=== PATIENT | female | born 1965 | race Caucasian/White ===

== ENCOUNTER 2017-08-11 16:10 | Emergency (ER) | payer OTHER ==
[~2017-08-11] VITALS: Ht 157.5 cm; Wt 65.0 kg
[~2017-08-11 16:10] MED LIST: MOME13HF2 IH; MONT10TA21 PO
[2017-08-11 16:25] VITALS: Ht 157.5 cm; Wt 65.0 kg
[2017-08-11] MEDS ORDERED: FLUT9.9S NASAL (17:22)
[2017-08-11] MEDS ORDERED: PHEN177S43 MT (17:22)
[2017-08-11] MEDS ORDERED: BENZ200C43 PO (17:22)
[2017-08-11] MEDS ORDERED: MONT10TA21 PO (17:42)
[2017-08-11] MEDS ORDERED: MOME13HF2 INHALATION (17:42)
--- NOTE | 2017-08-11 17:57 | ERD ---
ER Documentation Chief Complaint Chief Complaint SORE THROAT, HEADACHE, CONGESTION X 3 DAYS HPI Patient is a 52-year-old female presenting to the emergency department with complaints of intermittent, worsening sore throat, headache, nasal congestion for 3 days. No other symptoms reported currently. ROS All systems reviewed and are negative except as per history of present illness. Medications Home Meds Active Scripts Mometasone-Formoterol (Dulera) 100-5 Mcg - 13 Gm Hfa.aer.ad, 2 PUFFS INHALATION BID, #1 INHALER Prov:JULIANE GARZA PA-C 08/11/17 Montelukast Sodium* (Singulair*) 10 Mg Tablet, 10 MG PO QHS, #30 TAB Prov:JULIANE GARZA PA-C 08/11/17 Phenol* (Chloraseptic* [place]) 177 Ml [place].pump, 2 SPRAY MT Q2H Y for SORE THROAT, #1 BOTTLE Prov:JULIANE GARZA PA-C 08/11/17 Benzonatate* (Benzonatate*) 200 Mg Capsule, 200 MG PO TID Y for COUGH, #20 CAP Prov:JULIANE GARZA PA-C 08/11/17 Fluticasone Propionate (Flonase Allergy Relief) 9.9 Ml [place].susp, 2 SPRAY NASAL DAILY, #1 BOTTLE TO EACH NOSTRIL Prov:JULIANE GARZA PA-C 08/11/17 Reported Medications Montelukast Sodium* (Singulair*) 10 Mg Tablet, 10 MG PO HS, TAB 08/23/14 Mometasone-Formoterol (Dulera) 100-5 Mcg - 13 Gm Hfa.aer.ad, 1 PUFFS IH QHS, EA 08/23/14 Allergies Allergies: Coded Allergies: No Known Allergy (Unverified , 08/23/14) PMhx/Soc Medical and Surgical Hx: pt denies Medical Hx, pt denies Surgical Hx Hx Alcohol Use: No Hx Substance Use: No Hx Tobacco Use: No Smoking Status: Never smoker Physical Exam Vitals Vital Signs Date Time Temp Pulse Resp B/P Pulse Ox O2 Delivery O2 Flow Rate FiO2 08/11/17 16:25 98.2 90 18 117/77 97 Physical Exam Const: Nontoxic, well-appearing female in no acute distress. Head: Atraumatic Eyes: Normal Conjunctiva ENT: Normal External Ears, Nose and Mouth. Nares are congested. Neck: Full range of motion..~ No meningismus. Resp: Clear to auscultation bilaterally Cardio: Regular rate and rhythm, no murmurs Skin: No petechiae or rashes Ext: No cyanosis, or edema Neur: Awake and alert Psych: Normal Mood and Affect Procedures/MDM 52-year-old female presents to the emergency department for flulike symptoms. Physical examination is consistent with a viral syndrome. Vital signs are within normal limits and there is no evidence to suggest life-threatening illness. I will give the patient prescriptions for her symptoms. Patient also requested refills of her asthma medication, which I gave her prescriptions for. Pt/family in agreement with discharge plan/diagnosis. Pt/family advised to return immediately with any new or worsening symptoms. Follow-up with primary care physician within the next 1-2 days. Disclaimer: Inadvertent spelling and grammatical errors are likely due to EHR/ dictation software use and do not reflect on the overall quality of patient care. Also, please note that the electronic time recorded on this note does not necessarily reflect the actual time of the patient encounter. Departure Diagnosis: Primary Impression: Viral syndrome Condition: Fair Patient Instructions: Preventing Common Respiratory Infections Referrals: CORY TAYLOR MD Additional Instructions: No mas mejor en 2-3 saunders, regresar. Mas peor en 24 horas, regresear rapidamente. Ir a doctor primario en 1-2 saunders. Usar instrucciones cuando min medicamento. JULIANE GARZA PA-C Aug 11, 2017 17:57
== END 2017-08-11 17:40 | disposition home or self-care (01) ==
LOC: FTE 16:10
DX: B34.9 Viral infection, unspecified (principal)
CPT/HCPCS: 99283

== ENCOUNTER 2017-09-08 12:13 | Emergency (ER) | payer OTHER ==
[~2017-09-08] VITALS: Wt 65.9 kg
[~2017-09-08 12:13] MED LIST changes: +BENZ200C43 PO; +FLUT9.9S NASAL; +MOME13HF2 INHALATION; +PHEN177S43 MT
[2017-09-08 12:14] VITALS: Wt 65.9 kg
--- NOTE | 2017-09-08 12:41 | ERD ---
ER Documentation Chief Complaint Chief Complaint n/v/d, [place]well, chills, bodyaches, weakness HPI 52 y/o female patient with with history of well-controlled type 2 diabetes mellitus and asthma, presents to the emergency department c/o sudden onset of left lower quadrant, constant, that started 3 days ago. The pain is colicky, rated 8/10, without radiation. The symptoms are associated with nausea, loose stools, generalized arthralgia and feeling weak. Aggravating factors: Unknown. Alleviating factors: Unknown. Denies fever, cough, chest pain, dizziness. No history of previous episodes. Treatment attempted: None. Previous evaluation: None. History was given by the patient ROS SYSTEMIC symptoms: no fever but chills, no night sweats, no weight loss EYE symptoms: No blurred vision, no eye discharge OTOLARYNGEAL symptoms: No hearing loss. No ear pain, no sore throat CARDIOVASCULAR symptoms: No chest pain or discomfort, no palpitations. PULMONARY symptoms: No dyspnea, no cough, no wheezing. GASTROINTESTINAL symptoms: Per HPI MUSCULOSKELETAL symptoms: No arthralgias, no muscle aches. NEUROLOGY symptoms: No confusion, no syncope, no numbness or tingling. SKIN: No rashes Medications Home Meds Active Scripts Ranitidine Hcl* (Zantac*) 150 Mg Tablet, 150 MG PO BID Y for EPIGASTRIC PAIN, # 30 TAB Prov:RODNEY BURNETT MD 09/08/17 Hydrocodone/Acetaminophen ([place] 5-325 Tablet) 1 Each Tablet, 1 TAB PO Q6H Y for PAIN, #20 TAB Prov:RODNEY BURNETT MD 09/08/17 Mometasone-Formoterol (Dulera) 100-5 Mcg - 13 Gm Hfa.aer.ad, 2 PUFFS INHALATION BID, #1 INHALER Prov:JULIANE GARZA PA-C 08/11/17 Montelukast Sodium* (Singulair*) 10 Mg Tablet, 10 MG PO QHS, #30 TAB Prov:JULIANE GARZA PA-C 08/11/17 Phenol* (Chloraseptic* [place]) [address] [place].pump, 2 SPRAY MT Q2H Y for SORE THROAT, #1 BOTTLE Prov:JULIANE GARZA PA-C 08/11/17 Benzonatate* (Benzonatate*) 200 Mg Capsule, 200 MG PO TID Y for COUGH, #20 CAP Prov:JULIANE GARZA PA-C 08/11/17 Fluticasone Propionate (Flonase Allergy Relief) 9.[address] [place].susp, 2 SPRAY NASAL DAILY, #1 BOTTLE TO EACH NOSTRIL Prov:JULIANE GARZA PA-C 08/11/17 Reported Medications Montelukast Sodium* (Singulair*) 10 Mg Tablet, 10 MG PO HS, TAB 08/23/14 Mometasone-Formoterol (Dulera) 100-5 Mcg - 13 Gm Hfa.aer.ad, 1 PUFFS IH QHS, EA 08/23/14 Allergies Allergies: Coded Allergies: No Known Allergy (Unverified , 08/23/14) PMhx/Soc Hx Alcohol Use: No Hx Substance Use: No Hx Tobacco Use: No Physical Exam Vitals Vital Signs Date Time Temp Pulse Resp B/P Pulse Ox O2 Delivery O2 Flow Rate FiO2 09/08/17 12:14 99.4 78 20 114/61 98 Physical Exam Patient is in moderate distress due to pain, vital signs stable. Alert and fully oriented. EYES: PERRLA, EOMI, Sclera and conjunctiva appear normal. EARS: Canals clear, tympanic membranes WNL THROAT: Normal oropharynx. NECK: Supple, No lymphadenopathy. Full ROM without pain or tenderness. HEART: RRR, no rubs, murmurs, clicks or gallops. LUNGS: Clear to auscultation. ABDOMEN: Guarded, tender to deep palpation in the left lower quadrant, questionable rebound. No hepatosplenomegaly or megaly EXTREMITIES: No edema bilaterally. BACK: Full ROM, no deformity, normal back exam NEURO: Cranial nerves grossly intact, no motor or sensory deficit Result Diagram: 09/08/17 1316 09/08/17 1316 Results 24 hrs Laboratory Tests Test 09/08/17 13:16 White Blood Count 5.310^3/ul Red Blood Count 4.1710^6/ul Hemoglobin 12.7g/dl Hematocrit 36.6% Mean Corpuscular Volume 87.8fl Mean Corpuscular Hemoglobin 30.5pg Mean Corpuscular Hemoglobin Concent 34.7g/dl Red Cell Distribution Width 11.9% Platelet Count 33548^3/UL Mean Platelet Volume 11.7fl Neutrophils % 81.6% Lymphocytes % 12.7% Monocytes % 4.2% Eosinophils % 1.1% Basophils % 0.2% Nucleated Red Blood Cells % 0.0/100WBC Neutrophils # 4.310^3/ul Lymphocytes # 0.710^3/ul Monocytes # 0.210^3/ul Eosinophils # 0.110^3/ul Basophils # 0.010^3/ul Nucleated Red Blood Cells # 0.010^3/ul Urine Color YELLOW Urine Clarity CLEAR Urine pH 6.0 Urine Specific [place] 1.023 Urine Ketones NEGATIVEmg/dL Urine Nitrite NEGATIVEmg/dL Urine Bilirubin NEGATIVEmg/dL Urine Urobilinogen 2+mg/dL Urine Leukocyte Esterase NEGATIVELeu/ul Urine Hemoglobin NEGATIVEmg/dL Urine Glucose NEGATIVEmg/dL Urine Total Protein NEGATIVEmg/dl Sodium Level 140mmol/L Potassium Level 3.4mmol/L Chloride Level 102mmol/L Carbon Dioxide Level 27mmol/L Anion Gap 14 Blood Urea Nitrogen 9mg/dl Creatinine 0.56mg/dl Glucose Level 146mg/dl Calcium Level 9.0mg/dl Total Bilirubin 0.7mg/dl Direct Bilirubin 0.00mg/dl Indirect Bilirubin 0.7mg/dl Aspartate Amino Transf (AST/SGOT) 31IU/L Alanine Aminotransferase (ALT/SGPT) 40IU/L Alkaline Phosphatase 82IU/L Total Protein 7.3g/dl Albumin 4.2g/dl Globulin 3.10g/dl Albumin/Globulin Ratio 1.35 Lipase 46U/L Current Medications Medications (Trade) Dose Ordered Sig/Salima Route PRN Reason Start Time Stop Time Status Last Admin Dose Admin Sodium Chloride (NS) 1,000 ml @ 1,000 mls/hr Q1H STAT IV 09/08/17 12:42 09/08/17 13:41 DC 09/08/17 13:08 Ondansetron HCl (Zofran Inj) 4 mg ONCE STAT IV 09/08/17 12:42 09/08/17 12:43 DC 09/08/17 13:11 Ketorolac Tromethamine (Toradol) 30 mg ONCE STAT IV 09/08/17 12:42 09/08/17 12:43 DC 09/08/17 13:11 [place] [id number] Radiology Main Line: [phone] DIAGNOSTIC IMAGING REPORT Patient: SAMIR PIZARRO : 1965 Age: 52 Sex: F MR #: [id number] [facility] #: [id number] DOS: 09/08/17 1242 Ordering MD: RODNEY BURNETT MD Location: [facility] Room/Bed: PROCEDURE: CT ABDOMEN AND PELVIS WITHOUT CONTRAST. CLINICAL INDICATION: Abdominal pain TECHNIQUE: CT scan of the abdomen and pelvis without contrast was performed on a multidetector high-resolution CT scanner. The patient was scanned without intravenous contrast. Coronal and sagittal reformatted images were obtained from the axial source images. Images were reviewed on a high-resolution PACS workstation. The total exam CTDI equals 9.7 mGy and the total exam DLP equals 527 mGy-cm. One or more of the following dose reduction techniques were used: Automated exposure control. Adjustment of the mA and/or kV according to patient size. Use of iterative reconstruction technique. DICOM images are available COMPARISON: None FINDINGS: CT abdomen: The lung bases are clear. The heart size is within limits. There is no significant pericardial effusion. Hepatic morphology is within limits. No gross contour deforming masses. Gallbladder appears to be within normal limits. No evidence of intrahepatic or extrahepatic biliary dilatation. The spleen and pancreas are within normal limits. Both adrenal glands are within normal limits. Both kidneys are in normal anatomic position. No evidence of obstruction or hydronephrosis. No gross renal/ureteric calculi. The visualized GI tract demonstrates a focal dilated loop of small bowel within the left side of the abdomen, without definitive transition point. This is seen on images number 71 through 104. Findings are suggestive of focal ileus. No gross evidence of obstruction. The appendix is within normal limits. The unenhanced aorta is unremarkable. No significant retroperitoneal lymphadenopathy. CT pelvis: The bladder is distended. The uterus is unremarkable. The rectosigmoid colon is within normal limits. No significant free fluid. No significant pelvic lymphadenopathy. The visualized osseous structures demonstrate degenerative changes at the level of L5-S1. IMPRESSION: 1. No evidence of acute intra-abdominal/pelvic inflammatory process. No evidence of bowel obstruction. The appendix is within normal limits. 2. FOCAL MILDLY DILATED LOOP OF SMALL BOWEL WITHIN THE LEFT SIDE OF THE ABDOMEN , SUGGESTIVE OF FOCAL ILEUS. 3. No evidence of free fluid or free air. No gross focal fluid collections. RPTAT: AARR Suzanne Raphael Physician Date Time Electronically viewed and signed by Suzanne Raphael Physician on 09/08/2017 15:18 JL/ CC: RODNEY BURNETT MD Procedures/MDM 52y/o female patient with history of diabetes and asthma, presents to the ED c/ o left lower quadrant abdominal pain for 2 days. Vital signs stable, Physical exam revealed guarded abdomen, tender to deep palpation in the left lower quadrant, questionable rebound. Differential diagnosis include but not limited to: UTI, colitis, gastroenteritis, kidney stones, irritable bowel syndrome, inflammatory bowel syndrome, malabsorption syndrome, cholelithiasis, food intolerance, medication side effect, pancreatitis, diverticulitis, bowel obstruction. Pertinent Data: Labs: CBC: normal, CMP: normal kidney and liver function, normal electrolytes. Lipase: normal Radiology: CT abdomen: IMPRESSION: 1. No evidence of acute intra-abdominal/pelvic inflammatory process. No evidence of bowel obstruction. The appendix is within normal limits. 2. FOCAL MILDLY DILATED LOOP OF SMALL BOWEL WITHIN THE LEFT SIDE OF THE ABDOMEN , SUGGESTIVE OF FOCAL ILEUS. 3. No evidence of free fluid or free air. No gross focal fluid collections. Physical examination and clinical presentation consistent most likely with noninfectious colitis. During the ED course the patient received treatment with IV fluids, Toradol, famotidine, Zofran presenting overall improvement of the symptoms. Results and clinical impression discussed with the patient who agrees with management. The patient is stable to be treated outpatient and will be discharged home with a Rx for ranitidine and [place] as needed for pain Side effects of prescribed medications (headache, rash, nausea, vomiting, diarrhea) were reviewed. Side effects of prescribed opiates (drowsiness, habituation) were reviewed. Side effects of prescribed NSAID medication (GI distress, edema, bleeding, HTN) were reviewed. The patient was instructed to follow up with the primary care provider in the next 48h. If symptoms persist, worsen or new symptoms develop, then patient should return to the ED immediately. Instructions explained and given to patient in [place] with acknowledgment and demonstrated understanding. Disclaimer: Inadvertent spelling and grammatical errors are likely due to EHR/ dictation software use and do not reflect on the overall quality of patient care. Also, please note that the electronic time recorded on this note does not necessarily reflect the actual time of the patient encounter. Departure Diagnosis: Primary Impression: Abdominal pain Additional Impressions: Asthma Medication refused Condition: Stable Additional Instructions: Muchas lindsey por [facility] para rodrigues servicio. Esperamos que en rodrigues visita a la claudia de emergencia rodrigues problema medico haya sido solucionado y que se sienta mucho mejor. Para estar seguros que rodrigues mejoria sigue en proceso, le pedimos el favor de hacer jane marsha de seguimiento medico con rodrigues doctor primario en los proximos 2-4 saunders. Lleve con usted estos documentos y las medicinas recetadas. Si preet sintomas empeoran y no puede david a rodrigues doctor, por favor regrese a claudia de emergencia. En jose angel que usted no tenga un mdico de atencin primaria: Llame al mdico o clnica comunitaria de referencia que aparece abajo edson las horas de consultorio para hacer jane marsha para que le vean. CLINICAS: [facility] [phone] [address] [facility] [phone] [address] [facility] [phone] [facility] [phone] [address] [facility] [phone] [id number] [facility]. [phone] MD Sep 08, 2017 12:41
[2017-09-08] MEDS ORDERED: SOD CHLORIDE 0.9% 1,000 ML IV STA (12:42)
[2017-09-08] MEDS ORDERED: KETOROLAC 30 MG INJ IV STA (12:42)
[2017-09-08] MEDS ORDERED: ONDANSETRON 4 MG INJ IV STA (12:42)
[2017-09-08 13:38] LABS: BASOPHILS % 0.2 % (0.0-2.0); EOSINOPHILS # 0.1 10^3/ul (0.0-0.5); EOSINOPHILS % 1.1 % (0.0-7.0); HEMATOCRIT 36.6 % (37.0-47.0); HEMOGLOBIN 12.7 g/dl (12.0-16.0); LYMPHOCYTES # 0.7 10^3/ul (0.8-2.9); LYMPHOCYTES % 12.7 % (15.0-51.0); MEAN CORPUSCULAR HEMOGLOBIN 30.5 pg (29.0-33.0); MEAN CORPUSCULAR HGB CONC 34.7 g/dl (32.0-37.0); MEAN CORPUSCULAR VOLUME 87.8 fl (82.0-101.0); MEAN PLATELET VOLUME 11.7 fl (7.4-10.4); MONOCYTE # 0.2 10^3/ul (0.3-0.9); MONOCYTES % 4.2 % (0.0-11.0); NEUTROPHIL # 4.3 10^3/ul (1.6-7.5); NEUTROPHILS % 81.6 % (39.0-77.0); PLATELET COUNT 157 10^3/UL (140-415); RED BLOOD COUNT 4.17 10^6/ul (4.20-5.40); RED CELL DISTRIBUTION WIDTH 11.9 % (11.5-14.5); WHITE BLOOD COUNT 5.3 10^3/ul (4.8-10.8)
[2017-09-08 13:42] LABS: ADD UMIC NO; UR ASCORBIC ACID NEGATIVE (NEGATIVE); UR BILIRUBIN (Dip) NEGATIVE (NEGATIVE); UR BLOOD (Dip) NEGATIVE (NEGATIVE); UR CLARITY CLEAR (CLEAR); UR COLOR YELLOW (YELLOW); UR GLUCOSE (Dip) NEGATIVE (NEGATIVE); UR KETONES (Dip) NEGATIVE (NEGATIVE); UR LEUKOCYTE ESTERASE (Dip) NEGATIVE Leu/ul (NEGATIVE); UR NITRITE (Dip) NEGATIVE (NEGATIVE); UR SPECIFIC GRAVITY (Dip) 1.023 (1.003-1.030); UR TOTAL PROTEIN (Dip) NEGATIVE (NEGATIVE); UR UROBILINOGEN (Dip) 2+ mg/dL (NEGATIVE)
[2017-09-08 14:02] LABS: ALBUMIN 4.2 g/dl (3.3-4.9); ALBUMIN/GLOBULIN RATIO 1.35; BILIRUBIN,INDIRECT 0.7 mg/dl (0-1.1); BILIRUBIN,TOTAL 0.7 mg/dl (0.2-1.3); CREATININE 0.56 mg/dl (0.44-1.00); POTASSIUM 3.4 mmol/L (3.5-5.1); TOTAL PROTEIN 7.3 g/dl (6.1-8.1)
[2017-09-08] MEDS ORDERED: RANI150T9 PO (15:00)
[2017-09-08] MEDS ORDERED: HYDR-906 PO (15:00)
--- NOTE | 2017-09-08 15:19 | RADRPT ---
PROCEDURE: CT ABDOMEN AND PELVIS WITHOUT CONTRAST. CLINICAL INDICATION: Abdominal pain TECHNIQUE: CT scan of the abdomen and pelvis without contrast was performed on a multidetector hig h-resolution CT scanner. The patient was scanned without intravenous contrast. Coronal and sagittal reformatted images were obtained from the axial source images. Images were reviewed on a high-resol [employer] PACS workstation. The total exam CTDI equals 9.7 mGy and the total exam DLP equals 527 mGy-cm. One or more of the following dose reduction techniques were used: Automated exposure control. Adjustment of the mA and/or kV according to patient size. Use of iterative reconstruction technique. DICOM images are available COMPARISON: None FINDINGS: CT abdomen: The lung bases are clear. The heart size is within limits. There is no significant pericardial effus ion. Hepatic morphology is within limits. No gross contour deforming masses. Gallbladder appears to be wi thin normal limits. No evidence of intrahepatic or extrahepatic biliary dilatation. The spleen and pancreas are within normal limits. Both adrenal glands are within normal limits. Both kidneys are in normal anatomic position. No evidence of obstruction or hydronephrosis. No gross renal/ureteric calculi. The visualized GI tract demonstrates a focal dilated loop of small bowel within the left side of the abdomen, without definitive transition point. This is seen on images number 71 through 104. Finding s are suggestive of focal ileus. No gross evidence of obstruction. The appendix is within normal rios its. The unenhanced aorta is unremarkable. No significant retroperitoneal lymphadenopathy. CT pelvis: The bladder is distended. The uterus is unremarkable. The rectosigmoid colon is within normal limits . No significant free fluid. No significant pelvic lymphadenopathy. The visualized osseous structures demonstrate degenerative changes at the level of L5-S1. IMPRESSION: 1. No evidence of acute intra-abdominal/pelvic inflammatory process. No evidence of bowel obstructio n. The appendix is within normal limits. 2. FOCAL MILDLY DILATED LOOP OF SMALL BOWEL WITHIN THE LEFT SIDE OF THE ABDOMEN, SUGGESTIVE OF FOCAL ILEUS. 3. No evidence of free fluid or free air. No gross focal fluid collections. RPTAT: AARR Suzanne Raphael Physician Date Time Electronically viewed and signed by Suzanne Raphael, Physician on 09/08/2017 15:18 JL/
[2017-09-08] MEDS ORDERED: MOME13HF INHALATION (15:51)
== END 2017-09-08 15:41 | disposition home or self-care (01) ==
LOC: FTE 12:13
DX: R10.32 Left lower quadrant pain (principal); J45.909 Unspecified asthma, uncomplicated
CPT/HCPCS: 36415; 74176; 80053; 81003; 83690; 85025; 96374; 96375; J1885; J2405; J7030; Z7502

== ENCOUNTER 2018-03-11 19:09 | Emergency (ER) | END 2018-03-11 23:52 | disposition home or self-care (01) ==

== ENCOUNTER 2018-04-25 17:28 | Emergency (ER) | END 2018-04-25 19:39 | disposition home or self-care (01) ==

== ENCOUNTER 2018-06-16 14:14 | Emergency (ER) | END 2018-06-16 18:15 | disposition home or self-care (01) ==

== ENCOUNTER 2018-10-16 12:20 | Emergency (ER) | payer OTHER ==
[~2018-10-16] VITALS: Wt 64.1 kg
[~2018-10-16 12:20] MED LIST changes: +ACET500C5 PO; +ALBU8.5H8 INH; -BENZ200C43 PO; +BENZ200C68 PO; +CEPH-443 PO; +GUAI-637 PO; +HYDR-4011 PO; +MED4DP PO; +MOME13HF INHALATION; +NPH10OT RIGHT EAR; +ONDA8TAB14 PO; +RANI150T35 PO
[2018-10-16 12:28] VITALS: BP 129/70; PULSE 99; RESP 18
[2018-10-16] MEDS ORDERED: predniSONE 20 MG TAB PO STA (13:56)
[2018-10-16] MEDS ORDERED: IPRATROPIUM (NEB) 0.5 MG/2.5 ML AMP NEB STA (13:56)
[2018-10-16] MEDS ORDERED: ALBUTEROL 0.083% (NEB) 2.5 MG/3 ML AMP NEB STA (13:56)
--- NOTE | 2018-10-16 13:57 | ERD ---
ER Documentation Chief Complaint Chief Complaint ASTHMA WITH BILATERAL EAR PAIN HPI 53-year-old female, presents the emergency department, complaining of 5 days with worsening of cough, congestion and wheezing, associated with bilateral ear pain. The patient has been using Dulera twice a day without improvement of the symptoms. She also refers subjective fever but no chills, no shortness of breath or chest pain. ROS All systems reviewed and are negative except as per history of present illness. Medications Home Meds Active Scripts Prednisone* (Prednisone*) 20 Mg Tab, 40 MG PO DAILY for 4 Days, TAB Prov:RODNEY BURNETT MD 10/16/18 Azithromycin* (Zithromax*) 250 Mg Tablet, 250 MG PO .ZPACK DIRECTED, #6 TAB TAKE 500 MG (2 TABS) THE FIRST DAY THEN 250 MG (1 TAB) DAYS 2-5 Prov:RODNEY BURNETT MD 10/16/18 Albuterol Sulfate* (Proair HFA*) 8.5 Gm Hfa.aer.ad, 2 PUFF INH Q4H PRN for WHEEZING AND SOB, #1 INHALER Prov:RODNEY BURNETT MD 10/16/18 Mometasone-Formoterol (Dulera) 200-5 Mcg/Inh - 13 Gm Hfa.aer.ad, 2 PUFFS INHALATION BID, #1 INHALER Prov:RODNEY BURNETT MD 10/16/18 Ondansetron (Ondansetron Odt) 8 Mg Tab.rapdis, 8 MG PO Q6H PRN for NAUSEA AND/OR VOMITING, #8 TAB Prov:TIM MTZ MD 06/16/18 Acetaminophen* (Tylophen*) 500 Mg Capsule, 1 CAP PO Q6H PRN for PAIN AND OR ELEVATED TEMP, #20 CAP Prov:TIM MTZ MD 06/16/18 Neomycin/Polymyxin/Hydrocort* (Cortisporin* Otic) 10 Ml Susp, 4 DROP RIGHT EAR QID for 7 Days, EA Prov:TIM MTZ MD 06/16/18 Cephalexin* (Keflex*) 500 Mg Capsule, 500 MG PO BID for 7 Days, CAP Prov:JULIANE GARZA PA-C 04/25/18 Guaifenesin* (Robitussin*) 100 Mg/5 Ml Syrup, 100 MG PO QID, #120 ML Prov:ARCELIA ESCALANTE 03/11/18 Methylprednisolone* (Medrol* DOSE PACK) 4 Mg/Dose-Pack Tab.ds.pk, 4 MG PO . DIRECTED for 6 Days, PACKET Prov:ARCELIA ESCALANTE 03/11/18 Albuterol Sulfate* (Proair HFA*) 8.5 Gm Hfa.aer.ad, 2 PUFF INH Q4, #1 INHALER Prov:ARCELIA ESCALANTE 03/11/18 Mometasone-Formoterol (Dulera) 200-5 Mcg/Inh - 13 Gm Hfa.aer.ad, 2 PUFFS INHALATION BID, #1 INHALER Prov:RODNEY BURNETT MD 09/08/17 Ranitidine Hcl* (Zantac*) 150 Mg Tablet, 150 MG PO BID PRN for EPIGASTRIC PAIN, #30 TAB Prov:RODNEY BURNETT MD 09/08/17 Hydrocodone/Acetaminophen ([place] 5-325 Tablet) 1 Each Tablet, 1 TAB PO Q6H PRN for PAIN, #20 TAB Prov:RODNEY BURNETT MD 09/08/17 Mometasone-Formoterol (Dulera) 100-5 Mcg - 13 Gm Hfa.aer.ad, 2 PUFFS INHALATION BID, #1 INHALER Prov:JULIANE GARZA PA-C 08/11/17 Montelukast Sodium* (Singulair*) 10 Mg Tablet, 10 MG PO QHS, #30 TAB Prov:JULIANE GARZA PA-C 08/11/17 Phenol* (Chloraseptic* [place]) 177 Ml [place].pump, 2 SPRAY MT Q2H PRN for SORE THROAT, #1 BOTTLE Prov:JULIANE GARZA PA-C 08/11/17 Benzonatate* (Benzonatate*) 200 Mg Capsule, 200 MG PO TID PRN for COUGH, #20 CAP Prov:JULIANE GARZA PA-C 08/11/17 Fluticasone Propionate (Flonase Allergy Relief) 9.9 Ml [place].susp, 2 SPRAY NASAL DAILY, #1 BOTTLE TO EACH NOSTRIL Prov:JULIANE GARZA PA-C 08/11/17 Reported Medications Montelukast Sodium* (Singulair*) 10 Mg Tablet, 10 MG PO HS, TAB 08/23/14 Mometasone-Formoterol (Dulera) 100-5 Mcg - 13 Gm Hfa.aer.ad, 1 PUFFS IH QHS, EA 08/23/14 Allergies Allergies: Coded Allergies: acetaminophen (Verified Allergy, Unknown, vomiting, 06/16/18) hydrocodone (Verified Allergy, Unknown, vomiting, 06/16/18) PMhx/Soc History of Surgery: No Hx Miscellaneous Medical Probl: Yes (asthma diabetes) Hx Alcohol Use: No Hx Substance Use: No Hx Tobacco Use: No FmHx Family History: diabetes; No coronary disease Physical Exam Vitals Vital Signs Date Temp Pulse Resp B/P (MAP) Pulse Ox O2 O2 Flow FiO2 Time Delivery Rate 10/16/18 98.1 99 18 129/70 99 12:28 (89) Physical Exam Const: No acute distress Head: Atraumatic Eyes: Normal Conjunctiva ENT: Normal External Ears, Nose and Mouth. Neck: Full range of motion. No meningismus. Resp: Bilateral decreased respiratory sounds with expiratory wheezing. Cardio: Regular rate and rhythm, no murmurs Abd: Soft, non tender, non distended. Normal bowel sounds Skin: No petechiae or rashes Back: No midline or flank tenderness Ext: No cyanosis, or edema Neur: Awake and alert Psych: Normal Mood and Affect Results 24 hrs Current Medications Medications Dose Sig/Salima Start Time Status Last (Trade) Ordered Route PRN Stop Time Admin Dose Reason Admin Albuterol 5 mg ONCE STAT 10/16/18 DC (Proventil NEB 13:56 0.083% (Neb)) 10/16/18 13:59 Ipratropium 0.5 mg ONCE STAT 10/16/18 DC [place] NEB 13:56 (Atrovent 10/16/18 0.02% 13:59 (Neb)) Prednisone 60 mg ONCE STAT 10/16/18 DC 10/16/18 (Prednisone) PO 13:56 14:03 10/16/18 13:59 Procedures/MDM Differential diagnosis include but not limited to: Respiratory infection bacterial/viral/fungal. Asthma/COPD, pneumonitis, allergies, GERD. Less likely foreign body aspiration, cardiac related, aspiration pneumonia, malignancy. Physical examination and clinical presentation consistent most likely with acute asthma exacerbation with early superimposed bacterial infection. During the ED course the patient remained stable, received a nebulized treatment and steroids in the ED presenting overall improvement of the symptoms, no new complaints. Clinical impression discussed with the patient who agrees with management. The patient is stable to be treated outpatient and will be discharged home. Some side effects of prescribed medications (headache, rash, nausea, vomiting, diarrhea, drowsiness, habituation, bleeding, hypertension, interactions with other medications) were reviewed. The patient was instructed to follow up with the primary care provider in the next 48h. If symptoms persist, worsen or new symptoms develop, then patient should return to the ED immediately. Disclaimer: Inadvertent spelling and grammatical errors are likely due to EHR/dictation software use and do not reflect on the overall quality of patient care. Also, please note that the electronic time recorded on this note does not necessarily reflect the actual time of the patient encounter. Departure Diagnosis: Primary Impression: Asthma Condition: Stable Patient Instructions: Asthma Additional Instructions: Muchas lindsey por [facility] para rodrigues servicio. Esperamos que en rodrigues visita a la claudia de emergencia rodrigues problema medico haya sido solucionado y que se sienta mucho mejor. Para estar seguros que rodrigues mejoria sigue en proceso, le pedimos el favor de hacer jane marsha de seguimiento medico con rodrigues doctor primario en los proximos 2-4 saunders. Lleve con usted estos documentos y las medicinas recetadas. Si preet sintomas empeoran, NO SE ESPERE, por favor regrese a claudia de emergencia INMEDIATAMENTE. En jose angel que usted no tenga un mdico de atencin primaria: Llame al mdico o clnica comunitaria de referencia que aparece abajo edson las horas de consultorio para hacer jane marsha para que le vean. CLINICAS: [facility] [phone] [facility] [phone] [address] [facility] [phone] [address] [facility] [phone] [facility] [phone] [facility]. [phone] RODNEY HOYOS MD Oct 16, 2018 13:57
[2018-10-16] MEDS ORDERED: MOME13HF INHALATION (14:32)
[2018-10-16] MEDS ORDERED: ALBU8.5H8 INH (14:32)
[2018-10-16] MEDS ORDERED: AZIT250T PO (14:32)
[2018-10-16] MEDS ORDERED: PRED20TA PO (14:32)
== END 2018-10-16 14:56 | disposition home or self-care (01) ==
LOC: FTE 12:20
DX: J45.901 Unspecified asthma with (acute) exacerbation (principal); E11.9 Type 2 diabetes mellitus without complications; R05 Cough
CPT/HCPCS: 94664; J7512; Z7610

== ENCOUNTER 2019-04-16 11:03 | Emergency (ER) | payer MEDICAID, OTHER ==
[~2019-04-16] VITALS: Ht 160 cm; Wt 63.3 kg
[~2019-04-16 11:03] MED LIST changes: +AZIT250T PO; +PRED20TA PO
[2019-04-16 11:09] VITALS: BP 122/71; PULSE 81; RESP 19; Ht 160 cm; Wt 63.3 kg
[2019-04-16] MEDS ORDERED: FLUC150T PO (11:43)
[2019-04-16] MEDS ORDERED: KETO5DRO71 OP (12:10)
--- NOTE | 2019-04-18 04:30 | ERD ---
ER Documentation Chief Complaint Chief Complaint pelvic pain with vaginal discharge x 4 days HPI 53-year-old female presents to the emergency department complaining of itchy eyes and vaginal itching over the past 4 days. She denies any vaginal discharge, fevers, chills, abdominal pain, or other symptoms at this time. Symptoms are currently mild and intermittent. ROS All systems reviewed and are negative except as per history of present illness. Medications Home Meds Active Scripts Ketotifen Fumarate (ZADITOR) 5 Ml Drops, 5 ML OP DAILY, #1 BOTTLE Prov:JULIANE GARZA PA-C 04/16/19 Fluconazole* (Diflucan*) 150 Mg Tablet, 150 MG PO ONCE, #2 TAB Prov:JULIANE GARZA PA-C 04/16/19 Prednisone* (Prednisone*) 20 Mg Tab, 40 MG PO DAILY for 4 Days, TAB Prov:RODNEY BURNETT MD 10/16/18 Azithromycin* (Zithromax*) 250 Mg Tablet, 250 MG PO .ZPACK DIRECTED, #6 TAB TAKE 500 MG (2 TABS) THE FIRST DAY THEN 250 MG (1 TAB) DAYS 2-5 Prov:RODNEY BURNETT MD 10/16/18 Albuterol Sulfate* (Proair HFA*) 8.5 Gm Hfa.aer.ad, 2 PUFF INH Q4H PRN for WH EEZING AND SOB, #1 INHALER Prov:RODNEY BURNETT MD 10/16/18 Mometasone-Formoterol (Dulera) 200-5 Mcg/Inh - 13 Gm Hfa.aer.ad, 2 PUFFS INHALATION BID, #1 INHALER Prov:RODNEY BURNETT MD 10/16/18 Ondansetron (Ondansetron Odt) 8 Mg Tab.rapdis, 8 MG PO Q6H PRN for NAUSEA AND/OR VOMITING, #8 TAB Prov:TIM MTZ MD 06/16/18 Acetaminophen* (Tylophen*) 500 Mg Capsule, 1 CAP PO Q6H PRN for PAIN AND OR ELEVATED TEMP, #20 CAP Prov:TIM MTZ MD 06/16/18 Neomycin/Polymyxin/Hydrocort* (Cortisporin* Otic) 10 Ml Susp, 4 DROP RIGHT EAR QID for 7 Days, EA Prov:TIM MTZ MD 06/16/18 Cephalexin* (Keflex*) 500 Mg Capsule, 500 MG PO BID for 7 Days, CAP Prov:JULIANE GARZA PA-C 04/25/18 Guaifenesin* (Robitussin*) 100 Mg/5 Ml Syrup, 100 MG PO QID, #120 ML Prov:BORISARCELIA Buckley 03/11/18 Methylprednisolone* (Medrol* DOSE PACK) 4 Mg/Dose-Pack Tab.ds.pk, 4 MG PO . DIRECTED for 6 Days, PACKET Prov:PETE ESCALANTEJANET Buckley 03/11/18 Albuterol Sulfate* (Proair HFA*) 8.5 Gm Hfa.aer.ad, 2 PUFF INH Q4, #1 INHALER Prov:ARCELIA ESCALANTE 03/11/18 Mometasone-Formoterol (Dulera) 200-5 Mcg/Inh - 13 Gm Hfa.aer.ad, 2 PUFFS INHALATION BID, #1 INHALER Prov:RODNEY BURNETT MD 09/08/17 Ranitidine Hcl* (Zantac*) 150 Mg Tablet, 150 MG PO BID PRN for EPIGASTRIC PAIN, #30 TAB Prov:RODNEY BURNETT MD 09/08/17 Hydrocodone/Acetaminophen ([place] 5-325 Tablet) 1 Each Tablet, 1 TAB PO Q6H PRN for PAIN, #20 TAB Prov:RODNEY BURNETT MD 09/08/17 Mometasone-Formoterol (Dulera) 100-5 Mcg - 13 Gm Hfa.aer.ad, 2 PUFFS INHALATION BID, #1 INHALER Prov:JULIANE GARZA PA-C 08/11/17 Montelukast Sodium* (Singulair*) 10 Mg Tablet, 10 MG PO QHS, #30 TAB Prov:JULIANE GARZA PA-C 08/11/17 Phenol* (Chloraseptic* [place]) 177 Ml [place].pump, 2 SPRAY MT Q2H PRN for SORE THROAT, #1 BOTTLE Prov:JULIANE GARZA PA-C 08/11/17 Benzonatate* (Benzonatate*) 200 Mg Capsule, 200 MG PO TID PRN for COUGH, #20 CAP Prov:JULIANE GARZA PA-C 08/11/17 Fluticasone Propionate (Flonase Allergy Relief) 9.9 Ml [place].susp, 2 SPRAY NASAL DAILY, #1 BOTTLE TO EACH NOSTRIL Prov:JULIANE GARZA PA-C 08/11/17 Reported Medications Montelukast Sodium* (Singulair*) 10 Mg Tablet, 10 MG PO HS, TAB 08/23/14 Mometasone-Formoterol (Dulera) 100-5 Mcg - 13 Gm Hfa.aer.ad, 1 PUFFS IH QHS, EA 08/23/14 Allergies Allergies: Coded Allergies: acetaminophen (Verified Allergy, Unknown, vomiting, 06/16/18) hydrocodone (Verified Allergy, Unknown, vomiting, 06/16/18) PMhx/Soc Medical and Surgical Hx: pt denies Medical Hx History of Surgery: No Hx Miscellaneous Medical Probl: Yes (asthma diabetes) Hx Alcohol Use: No Hx Substance Use: No Hx Tobacco Use: No Smoking Status: Never smoker FmHx Family History: No diabetes Physical Exam Vitals Vital Signs Date Temp Pulse Resp B/P (MAP) Pulse Ox O2 O2 Flow FiO2 Time Delivery Rate 04/16/19 98.5 81 19 122/71 97 11:09 (88) Physical Exam Const: No acute distress Head: Atraumatic Eyes: Bilateral conjunctival injection. No discharge. Extraocular movements intact bilaterally. ENT: Normal External Ears, Nose and Mouth. Neck: Full range of motion. No meningismus. Resp: Clear to auscultation bilaterally Cardio: Regular rate and rhythm, no murmurs Abd: Soft, non tender, non distended. Normal bowel sounds. No rebound tenderness or guarding. No McBurney's point tenderness. Skin: No petechiae or rashes Back: No midline or flank tenderness. No CVA tenderness. Ext: No cyanosis, or edema Neur: Awake and alert Psych: Normal Mood and Affect Procedures/MDM 53-year-old female presents with signs and symptoms most consistent with allergic conjunctivitis and vaginitis. No evidence of acute surgical abdomen, preseptal cellulitis, sepsis, serious bacterial infection, or other emergencies. Patient will be treated as an outpatient and will need to follow-up with her primary care physician within the next 24 to 48 hours and return here for any new or worsening or concerning symptoms. Patient understands and agrees with diagnosis and plan. Departure Diagnosis: Primary Impression: Vaginitis Condition: Fair Patient Instructions: Vaginitis, [place] [facility] Usted se boswell hecho un examen mdico de control que le indica que no est en jane condicin que requiera tratamiento urgente en el Departamento de Emergencia. Un estudio ms profundo y el tratamiento de rodrigues condicin pueden esperar sin ningn riesgo hasta que usted sea atendida/o en el consultorio de rodrigues mdico o jane clnica. Es responsabilidad suya arreglar jane kely para el seguimiento del jose angel. MANEJO DE CONDICIONES NO URGENTES EN EL FUTURO 1) Si usted tiene un mdico de atencin primaria: Usted debera llamar a rodrigues mdico de atencin primaria antes de venir al departamento de emergencia. Despus de las horas de consultorio, rodrigues doctor o rodrigues asociado/a est disponible por telfono. El mdico o enfermero de ray en el servicio telefnico puede asesorarle por hair medio para atender el problema, o jose angel contrario se puede programar jane kely. 2) Si usted no tiene un mdico de atencin primaria: Llame al mdico o clnica de referencia que aparece abajo edson las horas de consultorio para hacer jane kely para que le vean. CLINICAS: [facility] [phone] [address] [facility] [phone] [phone] [address] [facility] [phone] [address] [place] [phone] [facility] [phone] [address] Additional Instructions: Llame al doctor MAANA y yovanny jane KELY PARA DENTRO DE 1-2 CMKEON.Dgale a la s ecretaria que nosotros le instruimos hacer esta kely.Avise o llame si rodrigues condicin se empeora antes de la kely. Regresa aqui si peor o no mejor. JULIANE GARZA PA-C Apr 18, 2019 04:30
== END 2019-04-16 12:18 | disposition home or self-care (01) ==
LOC: FTE 11:03
DX: N76.0 Acute vaginitis (principal); H10.13 Acute atopic conjunctivitis, bilateral; J45.909 Unspecified asthma, uncomplicated; E11.9 Type 2 diabetes mellitus without complications
CPT/HCPCS: 99283

== ENCOUNTER 2019-05-23 22:29 | Emergency (ER) | payer MEDICAID, OTHER ==
[~2019-05-23] VITALS: Ht 154.9 cm; Wt 63.0 kg
[~2019-05-23 22:29] MED LIST changes: +FLUC150T PO; +KETO5DRO71 OP
[2019-05-23 22:32] VITALS: Ht 154.9 cm; Wt 63.0 kg
[2019-05-23] MEDS ORDERED: SOD CHLORIDE 0.9% 500 ML IV STA (22:58)
[2019-05-23] MEDS ORDERED: IPRATROPIUM (NEB) 0.5 MG/2.5 ML AMP NEB STA (22:58)
[2019-05-23] MEDS ORDERED: DEXAMETHASONE 10 MG/ML 1 ML INJ IV STA (22:58)
[2019-05-23] MEDS ORDERED: ALBUTEROL 0.083% (NEB) 2.5 MG/3 ML AMP NEB STA (22:58)
--- NOTE | 2019-05-23 22:59 | ERD ---
ER Documentation Chief Complaint Chief Complaint COUGH AND WHEEZING; HX OF ASTHMA XTODAY HPI 53-year-old female, with history of asthma, presents the emergency department, complaining of worsening of respiratory symptoms including cough, wheezing, shortness of breath on exertion and general malaise for 1 day. The patient denies fever or chills, no chest pain, currently she takes Breo and montelukast for her asthma. ROS All systems reviewed and are negative except as per history of present illness. Medications Home Meds Active Scripts Albuterol Sulfate* (Proair HFA*) 8.5 Gm Hfa.aer.ad, 2 PUFF INH Q4H PRN for WHEEZING AND SOB, #1 INHALER Prov:RODNEY BURNETT MD 05/24/19 Prednisone* (Prednisone*) 20 Mg Tab, 60 MG PO DAILY for 4 Days, TAB Prov:RODNEY BURNETT MD 05/24/19 Ketotifen Fumarate (ZADITOR) 5 Ml Drops, 5 ML OP DAILY, #1 BOTTLE Prov:JULIANE GARZA PA-C 04/16/19 Fluconazole* (Diflucan*) 150 Mg Tablet, 150 MG PO ONCE, #2 TAB Prov:JULIANE GARZA PA-C 04/16/19 Prednisone* (Prednisone*) 20 Mg Tab, 40 MG PO DAILY for 4 Days, TAB Prov:RODNEY BURNETT MD 10/16/18 Azithromycin* (Zithromax*) 250 Mg Tablet, 250 MG PO .ZPACK DIRECTED, #6 TAB TAKE 500 MG (2 TABS) THE FIRST DAY THEN 250 MG (1 TAB) DAYS 2-5 Prov:RODNEY BURNETT MD 10/16/18 Albuterol Sulfate* (Proair HFA*) 8.5 Gm Hfa.aer.ad, 2 PUFF INH Q4H PRN for WHEEZING AND SOB, #1 INHALER Prov:RODNEY BURNETT MD 10/16/18 Mometasone-Formoterol (Dulera) 200-5 Mcg/Inh - 13 Gm Hfa.aer.ad, 2 PUFFS INHALAT ION BID, #1 INHALER Prov:RODNEY BURNETT MD 10/16/18 Ondansetron (Ondansetron Odt) 8 Mg Tab.rapdis, 8 MG PO Q6H PRN for NAUSEA AND/OR VOMITING, #8 TAB Prov:TIM MTZ MD 06/16/18 Acetaminophen* (Tylophen*) 500 Mg Capsule, 1 CAP PO Q6H PRN for PAIN AND OR ELEVATED TEMP, #20 CAP Prov:TIM MTZ MD 06/16/18 Neomycin/Polymyxin/Hydrocort* (Cortisporin* Otic) 10 Ml Susp, 4 DROP RIGHT EAR QID for 7 Days, EA Prov:TIM MTZ MD 06/16/18 Cephalexin* (Keflex*) 500 Mg Capsule, 500 MG PO BID for 7 Days, CAP Prov:JULIANE GARZA PA-C 04/25/18 Guaifenesin* (Robitussin*) 100 Mg/5 Ml Syrup, 100 MG PO QID, #120 ML Prov:ARCELIA ESCALANTE 03/11/18 Methylprednisolone* (Medrol* DOSE PACK) 4 Mg/Dose-Pack Tab.ds.pk, 4 MG PO . DIRECTED for 6 Days, PACKET Prov:ARCELIA ESCALANTE 03/11/18 Albuterol Sulfate* (Proair HFA*) 8.5 Gm Hfa.aer.ad, 2 PUFF INH Q4, #1 INHALER Prov:ARCELIA ESCALANTE 03/11/18 Mometasone-Formoterol (Dulera) 200-5 Mcg/Inh - 13 Gm Hfa.aer.ad, 2 PUFFS INHALATION BID, #1 INHALER Prov:RODNEY BURNETT MD 09/08/17 Ranitidine Hcl* (Zantac*) 150 Mg Tablet, 150 MG PO BID PRN for EPIGASTRIC PAIN, #30 TAB Prov:RODNEY BURNETT MD 09/08/17 Hydrocodone/Acetaminophen ([place] 5-325 Tablet) 1 Each Tablet, 1 TAB PO Q6H PRN for PAIN, #20 TAB Prov:RODNEY BURNETT MD 09/08/17 Mometasone-Formoterol (Dulera) 100-5 Mcg - 13 Gm Hfa.aer.ad, 2 PUFFS INHALATION BID, #1 INHALER Prov:JULIANE GARZA PA-C 08/11/17 Montelukast Sodium* (Singulair*) 10 Mg Tablet, 10 MG PO QHS, #30 TAB Prov:JUILANE GARZA PA-C 08/11/17 Phenol* (Chloraseptic* [place]) 177 Ml [place].pump, 2 SPRAY MT Q2H PRN for SORE THROAT, #1 BOTTLE Prov:JULIANE GARZA PA-C 08/11/17 Benzonatate* (Benzonatate*) 200 Mg Capsule, 200 MG PO TID PRN for COUGH, #20 CAP Prov:JULIANE GARZA PA-C 08/11/17 Fluticasone Propionate (Flonase Allergy Relief) 9.9 Ml [place].susp, 2 SPRAY NASAL DAILY, #1 BOTTLE TO EACH NOSTRIL Prov:JULIANE GARZA PA-C 08/11/17 Reported Medications Montelukast Sodium* (Singulair*) 10 Mg Tablet, 10 MG PO HS, TAB 08/23/14 Mometasone-Formoterol (Dulera) 100-5 Mcg - 13 Gm Hfa.aer.ad, 1 PUFFS IH QHS, EA 08/23/14 Allergies Allergies: Coded Allergies: acetaminophen (Verified Allergy, Unknown, vomiting, 06/16/18) hydrocodone (Verified Allergy, Unknown, vomiting, 06/16/18) PMhx/Soc History of Surgery: No Hx Miscellaneous Medical Probl: Yes (asthma diabetes) Hx Alcohol Use: No Hx Substance Use: No Hx Tobacco Use: No FmHx Family History: diabetes; No coronary disease Physical Exam Vitals Vital Signs Date Temp Pulse Resp B/P (MAP) Pulse Ox O2 O2 Flow FiO2 Time Delivery Rate 05/24/19 20 97 Room Air 00:02 05/23/19 71 20 97 21 23:30 05/23/19 98.4 80 20 126/83 96 22:32 (97) Physical Exam Patient alert, oriented, mild respiratory distress with cough. HEAD: Normocephalic, atraumatic. EYES: PERRLA, EOMI, Sclera and conjunctiva appear normal. NOSE: clear rhinorrhea . EARS: Canals clear, tympanic membranes WNL. MOUTH: normal lips and tongue, no oral lesions. THROAT: Erythema of the oropharynx, no tonsillar exudates. NECK: Supple, No lymphadenopathy. Full ROM without pain or tenderness. HEART: RRR, no rubs, murmurs, clicks or gallops. LUNGS: Bilateral inspiratory and expiratory wheezing to auscultation. ABDOMEN: Soft, non-tender without masses or hepatosplenomegaly. EXTREMITIES: No edema bilaterally. BACK: Full ROM, no deformity, normal back exam NEURO: Cranial nerves grossly intact, no motor or sensory deficit SKIN: No rashes, no petechia Result Diagram: 05/23/19232905/23/192329 Results 24 hrs Laboratory Tests Test 05/23/19 23:30 White Blood Count 7.0 10^3/ul Red Blood Count 4.27 10^6/ul Hemoglobin 13.1 g/dl Hematocrit 38.3 % Mean Corpuscular Volume 89.7 fl Mean Corpuscular Hemoglobin 30.7 pg Mean Corpuscular Hemoglobin Concent 34.2 g/dl Red Cell Distribution Width 12.1 % Platelet Count 169 10^3/UL Mean Platelet Volume 11.4 fl Immature Granulocytes % 0.100 % Neutrophils % 41.7 % Lymphocytes % 43.8 % Monocytes % 6.3 % Eosinophils % 7.7 % Basophils % 0.4 % Nucleated Red Blood Cells % 0.0 /100WBC Immature Granulocytes # 0.010 10^3/ul Neutrophils # 2.9 10^3/ul Lymphocytes # 3.1 10^3/ul Monocytes # 0.4 10^3/ul Eosinophils # 0.5 10^3/ul Basophils # 0.0 10^3/ul Nucleated Red Blood Cells # 0.0 10^3/ul Sodium Level 143 mmol/L Potassium Level 3.9 mmol/L Chloride Level 106 mmol/L Carbon Dioxide Level 29 mmol/L Anion Gap 8 Blood Urea Nitrogen 11 mg/dl Creatinine 0.52 mg/dl Est Glomerular Filtrat Rate mL/min > 60 mL/min Glucose Level 107 mg/dl Calcium Level 9.6 mg/dl Current Medications Medications Dose Sig/Salima Start Time Status Last (Trade) Ordered Route PRN Stop Time Admin Dose Reason Admin Sodium 500 ml @ Q1H STAT 05/23/19 DC 05/23/19 Chloride 500 mls/hr IV 22:58 05/23/19 23:36 23:57 Albuterol 5 mg ONCE STAT 05/23/19 DC 05/23/19 (Proventil NEB 22:58 05/23/19 23:30 0.083% (Neb)) 23:08 Ipratropium 0.5 mg ONCE STAT 05/23/19 DC 05/23/19 [place] NEB 22:58 05/23/19 23:30 (Atrovent 23:08 0.02% (Neb)) 10 mg ONCE STAT 05/23/19 DC 05/23/19 Dexamethasone IV 22:58 05/23/19 23:36 (Decadron) 23:08 Procedures/MDM At the time of discharge, vital signs stable, no respiratory distress. Differential diagnosis include but not limited to: Respiratory infection bacterial/viral/fungal. Asthma/COPD, pneumonitis, allergies, GERD. Less likely foreign body aspiration, cardiac related, aspiration pneumonia, malignancy. Physical examination and clinical presentation consistent most likely with acute asthma exacerbation. During the ED course the patient remained stable, received a nebulized treatment and steroids in the ED presenting overall improvement of the symptoms, no new complaints. Clinical impression discussed with the patient who agrees with management. The patient is stable to be treated outpatient and will be discharged home. Some side effects of prescribed medications (headache, rash, nausea, vomiting, diarrhea, drowsiness, habituation, bleeding, hypertension, interactions with other medications) were reviewed. The patient was instructed to follow up with the primary care provider in the next 48h. If symptoms persist, worsen or new symptoms develop, then patient should return to the ED immediately. Disclaimer: Inadvertent spelling and grammatical errors are likely due to EHR/dictation software use and do not reflect on the overall quality of patient care. Also, please note that the electronic time recorded on this note does not necessarily reflect the actual time of the patient encounter. Departure Diagnosis: Primary Impression: Asthma exacerbation Condition: Stable Additional Instructions: Muchas lindsey por [facility] para rodrigues servicio. Esperamos que en rodrigues visita a la claudia de emergencia rodrigues problema medico haya sido solucionado y que se sienta mucho mejor. Para estar seguros que rodrigues mejoria sigue en proceso, le pedimos el favor de hacer jane marsha de seguimiento medico con rodrigues doctor primario en los proximos 2-4 saunders. Lleve con usted estos documentos y las medicinas recetadas. Si preet sintomas empeoran, NO SE ESPERE, por favor regrese a claudia de emergencia INMEDIATAMENTE. En jose angel que usted no tenga un mdico de atencin primaria: Llame al mdico o clnica comunitaria de referencia que aparece abajo edson las horas de consultorio para hacer jane marsha para que le vean. CLINICAS: [facility] [phone] [address] [facility] [phone] [address] [facility] [phone] [facility] [phone] [address] [facility] [phone] [address] [facility] [phone] RODNEY HOYOS MD May 23, 2019 22:59
[2019-05-24 01:56] VITALS: BP 109/65; PULSE 92; RESP 22
== END 2019-05-24 01:58 | disposition home or self-care (01) ==
LOC: FTE 22:29
DX: J45.901 Unspecified asthma with (acute) exacerbation (principal); E11.9 Type 2 diabetes mellitus without complications
CPT/HCPCS: 71045; 80048; 85025; 94664; 96374; J1100; J7040; Z7502; Z7610